=== PATIENT | male | born 1970 | race Caucasian/White ===

== ENCOUNTER → 2016-10-21 | Outpatient (CLI) | payer OTHER | LOC: FIMAGING 10:19 | PROVIDERS: ATTEND Family Medicine | DX: M25.70 Osteophyte, unspecified joint (principal) ==

== ENCOUNTER → 2017-11-09 | Outpatient (CLI) | payer OTHER | LOC: FIMAGING 14:19 | PROVIDERS: ATTEND Psychiatry & Neurology Neurology | DX: G31.84 Mild cognitive impairment of uncertain or unknown etiology (principal); J32.9 Chronic sinusitis, unspecified ==